=== PATIENT | male | born 1935 | race Two or more races ===

== ENCOUNTER 2018-05-31 11:13 | Outpatient (CLI) | payer OTHER | END 2018-05-31 11:24 | disposition home or self-care (01) | LOC: RX STUDY 11:13 | DX: R13.19 Other dysphagia (principal) ==

== ENCOUNTER 2018-09-01 07:39 | Outpatient (CLI) | payer OTHER | END 2018-09-01 07:47 | disposition home or self-care (01) | LOC: TOM 07:39 | DX: R19.4 Change in bowel habit (principal); K44.9 Diaphragmatic hernia without obstruction or gangrene; K59.09 Other constipation; R19.7 Diarrhea, unspecified; K57.30 Diverticulosis of large intestine without perforation or abscess without bleeding; K22.2 Esophageal obstruction; Z86.010 Personal history of colon polyps; K63.5 Polyp of colon; K29.70 Gastritis, unspecified, without bleeding; R63.4 Abnormal weight loss; R93.3 Abnormal findings on diagnostic imaging of other parts of digestive tract; N32.89 Other specified disorders of bladder ==

== ENCOUNTER 2019-09-07 08:54 | Outpatient (CLI) | payer OTHER | END 2019-09-07 15:00 | disposition home or self-care (01) | LOC: LAB 08:54 | DX: J30.89 Other allergic rhinitis (principal); J30.1 Allergic rhinitis due to pollen; J45.991 Cough variant asthma ==

== ENCOUNTER 2019-09-07 09:36 | Outpatient (CLI) | payer OTHER | END 2019-09-07 15:37 | disposition home or self-care (01) | LOC: MRI 09:36 | DX: R07.89 Other chest pain (principal); G20 Parkinson's disease; R13.12 Dysphagia, oropharyngeal phase | CPT/HCPCS: 70551 ==